=== PATIENT | female | born 1975 | race American Indian/Alaskan Native ===

== ENCOUNTER 2017-04-26 16:09 | Emergency (ER) | payer MEDICAID, OTHER ==
[2017-04-26 16:18] VITALS: BP 139/80
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
== END 2017-04-26 18:19 | disposition home or self-care (01) ==
LOC: ED 16:09
DX: S43.492A Other sprain of left shoulder joint, initial encounter (principal); S16.1XXA Strain of muscle, fascia and tendon at neck level, initial encounter; F12.10 Cannabis abuse, uncomplicated; Z88.6 Allergy status to analgesic agent; Z88.8 Allergy status to other drugs, medicaments and biological substances; V44.5XXA Car driver injured in collision with heavy transport vehicle or bus in traffic accident, initial encounter; Y93.89 Activity, other specified; Y92.89 Other specified places as the place of occurrence of the external cause; Y99.8 Other external cause status
CPT/HCPCS: 99282

== ENCOUNTER 2019-09-05 04:36 | Emergency (ER) | payer SELFPAY ==
[2019-09-05 04:54] VITALS: BP 112/46
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
== END 2019-09-05 08:42 | disposition home or self-care (01) ==
LOC: ED 04:36
DX: T14.90XA Injury, unspecified, initial encounter (principal); R51 Headache; Z79.899 Other long term (current) drug therapy; Z88.6 Allergy status to analgesic agent; Z88.8 Allergy status to other drugs, medicaments and biological substances; W01.0XXA Fall on same level from slipping, tripping and stumbling without subsequent striking against object, initial encounter; Y93.89 Activity, other specified; Y92.009 Unspecified place in unspecified non-institutional (private) residence as the place of occurrence of the external cause; Y99.8 Other external cause status
CPT/HCPCS: 99282

== ENCOUNTER 2021-05-18 02:41 | Emergency (ER) | payer SELFPAY ==
[2021-05-18 03:21] VITALS: BP 119/62
[2021-05-18 03:42] LABS: Bilirubin,Urine NEG (Negative); Blood,Urine LG (Negative); Color,Urine Colorless (Yellow); Protein,Urine <15 mg/dL mg/dL (Negative); Urobilinogen,Urine < 2.0 mg/dL (<2.0)
[2021-05-18 03:43] LABS: HCG Qualitative,Urine Negative (Negative)
[2021-05-18 03:45] LABS: Basophils % (Auto) 0.4 % (0.0-1.8); Eosinophils # (Auto) 0.1 K/mm3 (0.0-0.4); Eosinophils % (Auto) 1.7 % (0.0-4.3); Hematocrit 39.2 % (30.3-42.9); Hemoglobin 12.9 gm/dl (10.1-14.3); Lymphocytes # (Auto) 2.9 K/mm3 (1.2-5.4); Lymphocytes % (Auto) 40.3 % (13.4-35.0); Mean Corpuscular HGB Conc 33 % (30-34); Mean Corpuscular Volume 89 fl (79-97); Monocytes # (Auto) 0.6 K/mm3 (0.0-0.8); Monocytes % (Auto) 8.8 % (0.0-7.3); Platelet Count 305 K/mm3 (140-440); Red Blood Count 4.39 M/mm3 (3.65-5.03); Red Cell Distribution Width 13.4 % (13.2-15.2)
[2021-05-18] MEDS ORDERED: AMOXICILLIN/K CLAV 875/125MG TAB PO ONE (04:05)
[2021-05-18] MEDS ORDERED: hydrOXYzine PAMOATE 25 MG CAP PO ONE (04:05)
[2021-05-18] MEDS ORDERED: predniSONE 50 MG TAB PO ONE (04:05)
[2021-05-18] MEDS ORDERED: BENZONATATE 100 MG CAP PO ONE (04:06)
[2021-05-18 04:07] LABS: BUN/Creatinine Ratio 16; Blood Urea Nitrogen 13 mg/dL (7-17); Calcium 9.1 mg/dL (8.4-10.2); Hemolysis Index 6
--- NOTE | 2021-05-18 04:11 | Emergency Department Report ---
- General Chief Complaint: Upper Respiratory Infection Stated Complaint: DEHYDRATION,SINUS PRESSURE, DIZZINESS Source: patient Mode of arrival: Ambulatory Limitations: No Limitations - History of Present Illness Initial Comments: Patient is a 45-year-old -[place] female with a history of chronic re current allergic rhinitis due to symptoms systems changes and migraine headaches presents to the ED with complaint of acute onset persistent nasal and sinus congestion, frontal and maxillary sinus pressure, headache and mild dry cough for the last 1 week. Patient states that she has been taking [id number] medications and feels as if she is dehydrated. Patient also complains of lack of appetite and generalized malaise and fatigue. Patient denies dizziness, syncope, chest pain, shortness of breath, nausea and vomiting, diarrhea, abdominal pain, fever and chills or sore throat. MD Complaint: cough, rhinorrhea, nasal congestion, sinus pain -: Sudden, week(s) (1) Severity: severe Severity scale (0 -10): 7 Quality: dull, aching Consistency: constant Improves With: nothing Worsens With: nothing Associated Symptoms: denies other symptoms, rhinorrhea, nasal congestion, cough. denies: fever, chills, myalgias, diaphoresis, headache, sore throat, stiff neck, shortness of breath, abdominal pain, nausea, vomiting, diarrhea, dysuria, rash, confusion, right sweats, weight loss, hoarseness, ear pain, other Treatments Prior to Arrival: "cold medicine" - Related Data Previous Rx's Medication Instructions Recorded Last Taken Type Azithromycin [Zithromax Z-JANA] 250 mg PO DAILY #6 tablet 11/19/13 Unknown Rx HYDROcodone/APAP 10-325 [[place] 1 each PO Q6HR PRN #16 tablet 11/19/13 Unknown Rx 10-325 mg TAB] Acetaminophen/Codeine 1 tab PO Q6H PRN #14 tab 03/16/14 Unknown Rx [Acetaminophen-Codeine #3 TAB] Cyclobenzaprine [Flexeril 10mg] 10 mg PO TID PRN #20 tablet 03/16/14 Unknown Rx Naproxen [Naprosyn TAB] 500 mg PO BID #30 tablet 03/16/14 Unknown Rx Cyclobenzaprine [Flexeril] 10 mg PO TID PRN #20 tablet 04/26/17 Unknown Rx HYDROcodone/APAP 10-325 [[place] 1 each PO Q6HR PRN #10 tablet 04/26/17 Unknown Rx 10/325] Amoxicillin [Amoxicillin TAB] 875 mg PO Q12H #20 tab 05/18/21 Unknown Rx Butalb/Acetamin/Caff 50-325-40 1 - 2 tab PO Q6HR PRN #15 tab 05/18/21 Unknown Rx [Fioricet 50-325-40] Cetirizine HCl [Zyrtec 10mg tab] 10 mg PO DAILY #30 tab 05/18/21 Unknown Rx Ondansetron [Zofran Odt] 4 mg PO Q8HR PRN #15 tab.rapdis 05/18/21 Unknown Rx predniSONE [Deltasone] 40 mg PO DAILY #12 tab 05/18/21 Unknown Rx Allergies Allergy/AdvReac Type Severity Reaction Status Date / Time aspirin [From [facility]] Allergy Swelling Verified 11/19/13 03:27 citric acid Allergy Swelling Verified 11/19/13 03:27 [From [facility]] sodium bicarbonate Allergy Swelling Verified 11/19/13 03:27 [From [facility]] ED Review of Systems ROS: Stated complaint: DEHYDRATION,SINUS PRESSURE, DIZZINESS Other details as noted in HPI Constitutional: denies: chills, fever Eyes: denies: eye pain, eye discharge, vision change ENT: congestion, other (Maxillary and frontal sinus pressure). denies: ear pain, throat pain Respiratory: cough. denies: shortness of breath, wheezing Cardiovascular: denies: chest pain, palpitations Endocrine: no symptoms reported Gastrointestinal: denies: abdominal pain, nausea, vomiting, diarrhea Genitourinary: denies: urgency, dysuria, discharge Musculoskeletal: denies: back pain, joint swelling, arthralgia Skin: denies: rash, lesions Neurological: headache. denies: weakness, paresthesias Psychiatric: denies: anxiety, depression Hematological/Lymphatic: denies: easy bleeding, easy bruising ED Past Medical Hx - Past Medical History Previous Medical History?: Yes Hx Headaches / Migraines: Yes Additional medical history: Headaches - Surgical History Past Surgical History?: No - Social History Smoking Status: Never Smoker Substance Use Type: None - Medications Home Medications: Home Medications Medication Instructions Recorded Confirmed Last Taken Type Azithromycin [Zithromax Z-JANA] 250 mg PO DAILY #6 tablet 11/19/13 Unknown Rx HYDROcodone/APAP 10-325 [[place] 1 each PO Q6HR PRN #16 tablet 11/19/13 Unknown Rx 10-325 mg TAB] Acetaminophen/Codeine 1 tab PO Q6H PRN #14 tab 03/16/14 Unknown Rx [Acetaminophen-Codeine #3 TAB] Cyclobenzaprine [Flexeril 10mg] 10 mg PO TID PRN #20 tablet 03/16/14 Unknown Rx Naproxen [Naprosyn TAB] 500 mg PO BID #30 tablet 03/16/14 Unknown Rx Cyclobenzaprine [Flexeril] 10 mg PO TID PRN #20 tablet 04/26/17 Unknown Rx HYDROcodone/APAP 10-325 [[place] 1 each PO Q6HR PRN #10 tablet 04/26/17 Unknown Rx 10/325] Amoxicillin [Amoxicillin TAB] 875 mg PO Q12H #20 tab 05/18/21 Unknown Rx Butalb/Acetamin/Caff 50-325-40 1 - 2 tab PO Q6HR PRN #15 tab 05/18/21 Unknown Rx [Fioricet 50-325-40] Cetirizine HCl [Zyrtec 10mg tab] 10 mg PO DAILY #30 tab 05/18/21 Unknown Rx Ondansetron [Zofran Odt] 4 mg PO Q8HR PRN #15 tab.rapdis 05/18/21 Unknown Rx predniSONE [Deltasone] 40 mg PO DAILY #12 tab 05/18/21 Unknown Rx ED Physical Exam - General Limitations: No Limitations General appearance: alert, in no apparent distress - Head Head exam: Present: atraumatic, normocephalic, normal inspection - Eye Eye exam: Present: normal appearance, PERRL, EOMI Pupils: Present: normal accommodation - ENT ENT exam: Present: normal orophraynx, mucous membranes moist, normal external ear exam, other (Grossly congested nasal passages; palpable maxillary and frontal sinus tenderness) - Neck Neck exam: Present: normal inspection, full ROM. Absent: tenderness - Respiratory Respiratory exam: Present: normal lung sounds bilaterally. Absent: respiratory distress, wheezes, rales, rhonchi, chest wall tenderness, accessory muscle use, decreased breath sounds, prolonged expiratory - Cardiovascular Cardiovascular Exam: Present: regular rate, normal rhythm, normal heart sounds. Absent: systolic murmur, diastolic murmur, rubs, gallop - GI/Abdominal GI/Abdominal exam: Present: soft, normal bowel sounds. Absent: tenderness, guarding, rebound, hyperactive bowel sounds, hypoactive bowel sounds, organomegaly, mass - Extremities Exam Extremities exam: Present: normal inspection, full ROM, normal capillary refill - Back Exam Back exam: Present: normal inspection, full ROM. Absent: tenderness, CVA tenderness (R), CVA tenderness (L), muscle spasm, paraspinal tenderness - Neurological Exam Neurological exam: Present: alert, oriented X3, CN II-XII intact, normal gait, reflexes normal - Psychiatric Psychiatric exam: Present: normal affect, normal mood, anxious - Skin Skin exam: Present: warm, dry, intact, normal color. Absent: rash ED Course Vital Signs 05/18/21 03:02 Temperature 98.1 F Pulse Rate 65 Respiratory 17 Rate Blood Pressure 119/62 [Right] O2 Sat by Pulse 98 Oximetry ED Medical Decision Making - Lab Data Result diagrams: 05/18/21 03:29 - Medical Decision Making This is a 45-year-old -[place]ammar[place] female with a history of chronic recurrent allergic rhinitis due to symptoms systems changes and migraine headaches presents to the ED with complaint of acute onset persistent nasal and sinus congestion, frontal and maxillary sinus pressure, headache and mild dry cough for the last 1 week. Patient states that she has been taking [id number] medications and feels as if she is dehydrated. Patient also complains of lack of appetite and generalized malaise and fatigue. In the ED, patient is alert and oriented x3 and is not in any distress. Patient was treated in the ED for pain, also given initial oral antibiotics and steroids. Patient will discharge home on medications and advised to follow-up with her primary care physician in 7 to 10 days for reevaluation. Patient was advised return to the ED immediately if symptoms get worse. - Differential Diagnosis URI; sinusitis; rhinitis; bronchitis; Critical care attestation.: If time is entered above; I have spent that time in minutes in the direct care of this critically ill patient, excluding procedure time. ED Disposition Clinical Impression: Acute upper respiratory infection, Allergic rhinitis due to other allergen Acute pansinusitis, unspecified Qualifiers: Recurrence: recurrent Qualified Code(s): J01.41 - Acute recurrent pansinusitis Disposition: HOME / SELF CARE / HOMELESS Is pt being admited?: No Does the pt Need Aspirin: No Condition: Stable Instructions: Sinusitis, Adult, Vkiv-op-[id number], Upper Respiratory Infection, Adult, Avzi-yh-Tahb, Allergic Rhinitis, Adult, Nodt-[id number], Cough, Adult, Tbyp-fm-Hawj Additional Instructions: Take medication with food, drink plenty of fluids and follow-up with your primary care physician in 7 to 10 days for reevaluation. Return to the ED im mediately if symptoms get worse. Prescriptions: Amoxicillin [Amoxicillin TAB] 875 mg PO Q12H #20 tab predniSONE [Deltasone] 40 mg PO DAILY #12 tab Butalb/Acetamin/Caff 50-325-40 [Fioricet 50-325-40] 1 - 2 tab PO Q6HR PRN #15 tab PRN Reason: Headache Ondansetron [Zofran Odt] 4 mg PO Q8HR PRN #15 tab.rapdis PRN Reason: Nausea Cetirizine HCl [Zyrtec 10mg tab] 10 mg PO DAILY #30 tab Referrals: [facility] [Provider Group] - 3-5 Days Time of Disposition: 04:11 Print Language: SIN[place]
== END 2021-05-18 05:31 | disposition home or self-care (01) ==
LOC: ED 02:41
DX: J06.9 Acute upper respiratory infection, unspecified (principal); J30.89 Other allergic rhinitis; J01.41 Acute recurrent pansinusitis; Z88.6 Allergy status to analgesic agent; Z91.018 Allergy to other foods
CPT/HCPCS: 36415; 80048; 81001; 81025; 85025; 99283; J7512